=== PATIENT | female | born 1945 | race Two or more races ===

== ENCOUNTER 2018-02-28 14:20 | Emergency (ER) | payer OTHER ==
[2018-02-28 14:26] VITALS: BP 143/76; PULSE 69; TEMP 98; BMI 30.9
--- NOTE | 2018-02-28 15:25 | PDOC ---
History of Present Illness - General Chief Complaint: Injury Stated Complaint: INJURY - History of Present Illness Initial Comments: The patient is a 72 year old female, with a significant past medical history of HTN, diverticulitis, DM2, and chronic sinus infections, who presents to the emergency department s/p fall while attempting to get out of bed this AM. Per sister (serving as vice president business & corporate development), pt was attempting to exit bed this AM, when she slipped off of bed and fell on her coccyx, striking her head and L wrist during the fall. Per sister, pt was instructed by PMD to come to hospital due to headstrike while on ASA. Pt denies any HERNANDEZ, vision changes, peripheral numbness or weakness, gait abnormalities. Pt lives with daughter and ambulates without assistance at baseline The patient denies chest pain, shortness of breath, headache or dizziness. Denies fever, chills, nausea, vomiting, diarrhea and constipation. Denies dysuria, frequency, urgency and hematuria. Allergies: None Past surgical history: Hysterectomy and BL oophorectomy, 4X abdominal hernia repair Social History: Lives with daughter; Denies any hx of smoking, alcohol or drug abuse PMD: Dr. Heather Carrillo 02/28/18 15:26 Past History - Past Medical History Allergies/Adverse Reactions: Allergies Allergy/AdvReac Type Severity Reaction Status Date / Time No Known Allergies Allergy Verified 02/28/18 14:22 Home Medications: Ambulatory Orders Acetaminophen [Tylenol .Regular Strength -] 650 mg PO Q8H PRN #0 tablet Amlodipine Besylate [Norvasc -] 5 mg PO DAILY #0 tablet 09/30/12 Glipizide [Glipizide Xl] 5 mg PO DAILY #0 tab.er.24 09/30/12 Omeprazole [Prilosec (RX)] 40 mg PO DAILY #0 capsule. 09/30/12 Acetaminophen 650 mg PO QID PRN #30 tablet 02/28/18 Anemia: Yes COPD: No Diabetes: Yes GI Disorders: Yes (GERD, DIVERTICULITIS) HTN: Yes - Surgical History Abdominal Surgery: Yes (HERNIA REPAIR, DIVERTICULITIS) Appendectomy: Yes - Suicide/Smoking/Psychosocial Hx Smoking Status: No Smoking History: Never smoked Have you smoked in the past 12 months: No Number of Cigarettes Smoked Daily: 0 Information on smoking cessation initiated: No Hx Alcohol Use: No Drug/Substance Use Hx: No Substance Use Type: None Review of Systems - Review of Systems Comments:: GENERAL/CONSTITUTIONAL: No fever or chills. No weakness. HEAD, EYES, EARS, NOSE AND THROAT: No change in vision. No ear pain or discharge. No sore throat. CARDIOVASCULAR: No chest pain or shortness of breath RESPIRATORY: No cough, wheezing, or hemoptysis. GASTROINTESTINAL: No nausea, vomiting, diarrhea or constipation. GENITOURINARY: No dysuria, frequency, or change in urination. MUSCULOSKELETAL: Midline pain in lower back. Pain, swelling in L wrist and thumb. No joint or muscle swelling or pain. SKIN: No rash NEUROLOGIC: No headache, vertigo, loss of consciousness, or change in strength/ sensation. ENDOCRINE: No increased thirst. No abnormal weight change HEMATOLOGIC/LYMPHATIC: Bruising in L thumb. No anemia, easy bleeding, or history of blood clots. ALLERGIC/IMMUNOLOGIC: No hives or skin allergy. 02/28/18 15:25 02/28/18 15:55 *Physical Exam - Vital Signs Last Vital Signs Temp Pulse Resp BP Pulse Ox 98.0 F 69 18 143/76 100 02/28/18 14:23 02/28/18 14:23 02/28/18 14:23 02/28/18 14:23 02/28/18 14:23 - Physical Exam Comments: GENERAL: Elderly woman, Awake, alert, and fully oriented, NAD HEAD: No signs of trauma, normocephalic, atraumatic. No bony step off, bruises or ecchymoses noted. EYES: PERRLA, EOMI, sclera anicteric, conjunctiva clear ENT: Auricles normal inspection, hearing grossly normal, nares patent, oropharynx clear withoutexudates. Moist mucosa NECK: Normal ROM, supple, no lymphadenopathy, JVD, or masses LUNGS: No distress, speaks full sentences, clear to auscultation bilaterally HEART: Regular rate and rhythm, normal S1 and S2, no murmurs, rubs or gallops, peripheral pulses normal and equal bilaterally. ABDOMEN: Soft, nontender, normoactive bowel sounds. No guarding, no rebound. No masses EXTREMITIES : Focal edema, bruising in L lateral aspect of thumb and wrist, TTP. Chronic pain in knees BL. All other extremities normal inspection, Normal range of motion, no edema. No clubbing or cyanosis. NEUROLOGICAL: Cranial nerves II through XII grossly intact. Normal speech, gait not evaluated, no focal sensorimotor deficits 02/28/18 15:56 ED Treatment Course - LABORATORY CBC & Chemistry Diagram: 02/28/18 16:57 02/28/18 18:06 Medical Decision Making - Medical Decision Making 72 yo woman with HTN, DM2 and chronic sinusitis presenting s/p mechanical fall with headstrike and L wrist pain/swelling. Plan for CT head to r/o bleed as pt on ASA, L wrist XR to evaluate for fx. Likely discharge if imaging negative. 02/28/18 16:35 *DC/Admit/Observation/Transfer Diagnosis at time of Disposition: Fall - Discharge Dispostion Disposition: HOME Condition at time of disposition: Stable - Prescriptions Prescriptions: Acetaminophen 650 mg PO QID PRN #30 tablet PRN Reason: Pain Level 4 - 6 - Referrals - Patient Instructions Printed Discharge Instructions: How to Prevent Falls Additional Instructions: Please return to the ER if you have any signs or symptoms of chest pain, shortness of breath, uncontrollable fever, chills, nausea, vomiting, numbness, tingling, or weakness in any part of your body, changes in vision, or slurred speech. Please follow up with your primary care physician in 2-3 days. Please return to the ER if symptoms persist, worsen, or new symptoms arise. Print Language: MONTENEGRIN - Post Discharge Activity
--- NOTE | 2018-02-28 15:27 | PDOC ---
Attending Attestation - Resident Resident Name: Robina Lewisshua - HPI HPI: 03/17/18 00:47 Pt presents to the ED after mechanical fall complaining of L wrist pain. DEnies LOC. Ambulatory in the ED. Patient is on ASA and hit her head during the fall, so she was sent in by her PMD to get a head CT. - Physicial Exam PE: 03/17/18 00:48 Agree with resident exam. Patient is alert and is in no acute distress. L wrist has mild tenderness and swelling without deformity. - Medical Decision Making 03/17/18 00:49 Pt presents to the ED after mechanical fall. Since she is elderly and on ASA, will check CT head to rule out intracranial bleed. Will lcheck xray of the left wrist to rule out fx. Will likely discharge home if negative.
[2018-02-28] MEDS ORDERED: ACETAMINOPHEN 325 MG TABLET (FP) PO ONE (16:20)
[2018-02-28] MEDS ORDERED: ACETAMINOPHEN 325 MG TABLET (FP) ONE (16:25)
--- NOTE | 2018-02-28 18:02 | PDOC ---
Attending Attestation - Resident Resident Name: Michael Lewisua - ED Attending Attestation I have performed the following: I have examined & evaluated the patient, The case was reviewed & discussed with the resident, I agree w/resident's findings & plan, Exceptions are as noted - HPI HPI: 02/28/18 18:02 72 YO FEMALE BIBA AFTER A MECHANICAL FALL - Physicial Exam PE: 02/28/18 18:02 WNWD 72 yo female p/w left hand and wrist bruising and tenderness head no scalp lac neck supple lungs cta b/l cvs [id number] abd soft,nontender ext no edema,there is ecchymosis to left thumb,wrist neuro axox3,ambulatory - Medical Decision Making 02/28/18 18:05 ct head no acute intracranial pathology 03/01/18 01:21 wrist xray negative
[2018-02-28 18:14] LABS: BASO % 0.4 % (0-2.0); EOS % 4.7 % (0-4.5); HEMATOCRIT 30.3 % (32.4-45.2); HEMOGLOBIN 10.3 GM/dL (10.7-15.3); LYMPH % 36.7 % (8-40); MCH 30.9 pg (25.7-33.7); MEAN CELL VOLUME 90.7 fl (80-96); MEAN PLT VOLUME 8.1 fl (7.5-11.1); MONO % 7.9 % (3.8-10.2); NEUT % 50.3 % (42.8-82.8); PLATELET COUNT 257 K/MM3 (134-434); RBC 3.34 M/mm3 (3.60-5.2); RDW 13.5 % (11.6-15.6); WHITE BLOOD COUNT 6.7 K/mm3 (4.0-10.0)
[2018-02-28 18:19] LABS: INR 1.09 (0.82-1.09); PROTHROMBIN TIME (PATIENT) 12.3 SEC (9.7-13.0)
[2018-02-28 18:31] LABS: ALBUMIN 3.7 g/dl (3.4-5.0); ALK PHOS 43 U/L (45-117); ANION GAP 5 (8-16); BILIRUBIN,TOTAL 0.2 mg/dL (0.2-1.0); BLOOD UREA NITROGEN 20 mg/dL (7-18); CALCIUM 9.6 mg/dL (8.5-10.1); CHLORIDE 114 mmol/L (98-107); CO2 23 mmol/L (21-32); CREATININE 1.1 mg/dL (0.55-1.02); GLUCOSE,RANDOM 143 mg/dL (74-106); POTASSIUM 5.3 mmol/L (3.5-5.1); SGOT/AST 9 U/L (15-37); SGPT/ALT 15 U/L (12-78); SODIUM 142 mmol/L (136-145); TOT PROT 7.1 g/dl (6.4-8.2)
--- NOTE | 2018-02-28 19:24 | PDOC ---
*Physical Exam - Vital Signs Last Vital Signs Temp Pulse Resp BP Pulse Ox 98.0 F 69 18 143/76 100 02/28/18 14:23 02/28/18 14:23 02/28/18 14:23 02/28/18 14:23 02/28/18 14:23 ED Treatment Course - LABORATORY CBC & Chemistry Diagram: 02/28/18 16:57 02/28/18 18:06 - ADDITIONAL ORDERS Additional order review: Laboratory Results 02/28/18 02/28/18 18:06 18:06 PT with INR 12.30 INR 1.09 Sodium 142 Potassium 5.3 H Chloride 114 H Carbon Dioxide 23 Anion Gap 5 L BUN 20 H Creatinine 1.1 H Creat Clearance w eGFR 48.55 Random Glucose 143 H Calcium 9.6 Total Bilirubin 0.2 D AST 9 L ALT 15 Alkaline Phosphatase 43 L Total Protein 7.1 Albumin 3.7 02/28/18 16:57 RBC 3.34 L MCV 90.7 MCHC 34.0 RDW 13.5 MPV 8.1 Neutrophils % 50.3 D Lymphocytes % 36.7 D Monocytes % 7.9 Eosinophils % 4.7 H Basophils % 0.4 - Medications Given in the ED: ED Medications Discontinued Medications Generic Name Dose Route Start Last Admin Trade Name Freq PRN Reason Stop Dose Admin Acetaminophen 650 mg 02/28/18 16:20 02/28/18 16:27 Tylenol - PO 02/28/18 16:21 650 mg ONCE ONE Administration Medical Decision Making - Medical Decision Making 02/28/18 19:19 The patient was signed out to me by Dr. Lewis, day team. The patient is a 72F who had a mechanical fall on an outstretched hand. Pending L wrist XR and disposition. Head CT negative. Likely disposition: home. 02/28/18 20:25 XR negative. Will d/c home with PCP f/u. *DC/Admit/Observation/Transfer Diagnosis at time of Disposition: Fall Qualifiers: Encounter type: initial encounter Qualified Code(s): W19.XXXA - Unspecified fall, initial encounter - Discharge Dispostion Disposition: HOME Condition at time of disposition: Stable Decision to Admit order: No - Referrals - Patient Instructions Printed Discharge Instructions: How to Prevent Falls Additional Instructions: Please return to the ER if you have any signs or symptoms of chest pain, shortness of breath, uncontrollable fever, chills, nausea, vomiting, numbness, tingling, or weakness in any part of your body, changes in vision, or slurred speech. Please follow up with your primary care physician in 2-3 days. Please return to the ER if symptoms persist, worsen, or new symptoms arise. - Post Discharge Activity
== END 2018-02-28 20:43 | disposition home or self-care (01) ==
LOC: JER 14:20
DX: S09.8XXA Other specified injuries of head, initial encounter (principal); S69.82XA Other specified injuries of left wrist, hand and finger(s), initial encounter; W06.XXXA Fall from bed, initial encounter; Y93.89 Activity, other specified; Y92.013 Bedroom of single-family (private) house as the place of occurrence of the external cause; Y99.8 Other external cause status; Z79.82 Long term (current) use of aspirin; Z87.19 Personal history of other diseases of the digestive system
CPT/HCPCS: 36415; 70450-TC; 73110-TC-LR-FY; 73130-TC-LR-FY; 80053; 85025; 85610; 99283-25

== ENCOUNTER 2018-11-08 21:43 | Emergency (ER) | payer OTHER ==
[2018-11-08 22:04] VITALS: BP 174/84; PULSE 115; TEMP 98.1; BMI 27.4
--- NOTE | 2018-11-08 22:12 | PDOC ---
Attending Attestation - HPI HPI: 11/08/18 22:59 The patient is a 73 year old female, with a significant past medical history of HTN, diverticulitis, DM2, who presents to the emergency department s/p mechanical fall with, a headache. As per patient, she was walking on tiled floor with her socks when she slipped and fell hitting her head. She notes initial bleeding to the scalp and a dull, diffuse headache. She was able to ambulate s/p fall. She denies any LOC. She denies recent fevers or chills. She denies recent nausea , vomit, diarrhea or constipation. She denies recent dysuria, frequency, urgency or hematuria. She denies recent chest pain or shortness of breath. Allergies: NKDA Past surgical history: Hysterectomy and BL oophorectomy, 4X abdominal hernia repair Social history: Lives alone at home. Nonsmoker. Denies EtOH use and recreational drug use. - Medical Decision Making 11/09/18 00:26 EXAM: CERVICAL SPINE CT W/O CONTR HISTORY: Status post fall COMPARISON: None. FINDINGS: There is diffuse moderate to severe degenerative changes with a mild degenerative anterolisthesis of C2 on C3 and C7 on T1 There is no fracture or prevertebral soft tissue swelling . The lung apices are clear. IMPRESSION: No fracture EXAM: HEAD CT WITHOUT CONTRAST HISTORY: Status post fall COMPARISON: None FINDINGS: The ventricular system is midline and nondilated. The sulcal pattern is normal for the patient's age. There is no bleed, mass, extra-axial fluid collection or mass effect. Posterior right parietal scalp hematoma is noted. No skull fracture or skull lesion is identified. The visualized paranasal sinuses and mastoid air cells are clear. IMPRESSION: Scalp hematoma without skull fracture or intracranial hemorrhage. Read by: Hunter Longoria MD <Balaji Sierra - Last Filed: 11/09/18 00:26> - Resident Resident Name: Hair Manuel - ED Attending Attestation I have performed the following: I have examined & evaluated the patient, The case was reviewed & discussed with the resident, I agree w/resident's findings & plan - Physicial Exam PE: 11/09/18 00:31 Agree with resident exam - Medical Decision Making 73-year-old status post mechanical fall with injury to the right scalp CT scans of the head and cervical spine show no acute traumatic injury She will be discharged home, her daughter who is at the bedside states she will be staying with her this evening 11/09/18 00:32 <Margaret Torre - Last Filed: 11/09/18 00:33> Attestations - Attestations 11/08/18 22:59 Documentation prepared by Balaji Sierra, acting as medical technologist clinical for Margaret Torre DO. <Balaji Sierra - Last Filed: 11/09/18 00:26>
[2018-11-08] MEDS ORDERED: ACETAMINOPHEN 325 MG TABLET (FP) PO ONE (22:34)
[2018-11-08] MEDS ORDERED: DIPHTH,PERTUSS(ACELL),TET 0.5 ML DISP.SYRIN IM ONE ×2 (22:41→23:20)
--- NOTE | 2018-11-08 22:41 | PDOC ---
History of Present Illness - General Chief Complaint: Injury Stated Complaint: INJURY,LACERATION Time Seen by Provider: 11/08/18 22:07 - History of Present Illness Initial Comments: 11/08/18 22:34 73 yo F with h/o HTN who p/w closed head injury s/p mechanical fall. Patient states that she was ambulating in kitchen and slipped and fell and hit the back of her head on the tile 45 minutes [employer]. Denies LOC, neck/back trauma. States that she was unable to phonate for 30 seconds following event. On ground for one minute. Now with diffuse, dull, headache, and posterior right sided neck pain. Was able to ambulate following event. Typically ambulates without assistive device. Denies AC. Does not recall last tetanus. Patient denies palpitations, vision change, neck stiffness, N/V, F/C, CP, SOB, urinary complaints, abdominal pain, diarrhea, constipation, hematuria, BPR, lightheadedness, weakness, sensory changes. PMHx: as noted above ROS: as noted SHx:Denies Etoh, IVDA, tobacco use. Allergies: NKDA Past History - Past Medical History Allergies/Adverse Reactions: Allergies Allergy/AdvReac Type Severity Reaction Status Date / Time No Known Allergies Allergy Verified 11/08/18 22:04 Home Medications: Ambulatory Orders Acetaminophen [Tylenol .Regular Strength -] 650 mg PO Q8H PRN #0 tablet Amlodipine Besylate [Norvasc -] 5 mg PO DAILY #0 tablet 09/30/12 Glipizide [Glipizide Xl] 5 mg PO DAILY #0 tab.er.24 09/30/12 Omeprazole [Prilosec (RX)] 40 mg PO DAILY #0 capsule. 09/30/12 Acetaminophen 650 mg PO QID PRN #30 tablet 02/28/18 Anemia: Yes COPD: No Diabetes: Yes GI Disorders: Yes (GERD, DIVERTICULITIS) HTN: Yes - Surgical History Abdominal Surgery: Yes (HERNIA REPAIR, DIVERTICULITIS) Appendectomy: Yes - Suicide/Smoking/Psychosocial Hx Smoking Status: No Smoking History: Never smoked Have you smoked in the past 12 months: No Number of Cigarettes Smoked Daily: 0 Information on smoking cessation initiated: No Hx Alcohol Use: No Drug/Substance Use Hx: No Substance Use Type: None Review of Systems - Review of Systems Comments:: 11/08/18 22:47 GENERAL/CONSTITUTIONAL: No fever or chills. No weakness. HEAD, EYES, EARS, NOSE AND THROAT: No change in vision. No ear pain or discharge. No sore throat. CARDIOVASCULAR: No chest pain or shortness of breath RESPIRATORY: No cough, wheezing, or hemoptysis. GASTROINTESTINAL: No nausea, vomiting, diarrhea or constipation. GENITOURINARY: No dysuria, frequency, or change in urination. MUSCULOSKELETAL: No joint or muscle swelling or pain. No neck or back pain. SKIN: No rash NEUROLOGIC: +headache. No vertigo, loss of consciousness, or change in strength/ sensation. ENDOCRINE: No increased thirst. No abnormal weight change HEMATOLOGIC/LYMPHATIC: No anemia, easy bleeding, or history of blood clots. ALLERGIC/IMMUNOLOGIC: No hives or skin allergy. *Physical Exam - Vital Signs Last Vital Signs Temp Pulse Resp BP Pulse Ox 98.1 F 115 H 19 174/84 H 97 11/08/18 21:43 11/08/18 21:43 11/08/18 21:43 11/08/18 21:43 11/08/18 21:43 - Physical Exam Comments: 11/08/18 22:47 GENERAL: Awake, alert, and fully oriented, in no acute distress HEAD: + Right sided superior occipital scalp hemaotma/ttp measuring 6 x 4 cm, with 2 cm laceration, no subcutaneous involvement. No signs of trauma, normocephalic, atraumatic EYES: PERRLA, EOMI, sclera anicteric, conjunctiva clear ENT: Auricles normal inspection, hearing grossly normal, nares patent, oropharynx clear without exudates. Moist mucosa NECK: Normal ROM, supple, no lymphadenopathy, JVD, or masses LUNGS: No distress, speaks full sentences, clear to auscultation bilaterally HEART: Regular rate and rhythm, normal S1 and S2, no murmurs, rubs or gallops, peripheral pulses normal and equal bilaterally. ABDOMEN: Soft, nontender, normoactive bowel sounds. No guarding, no rebound. No masses EXTREMITIES : Normal inspection, Normal range of motion, no edema. No clubbing or cyanosis. BACK: Neg stepoff, bony deformity, skin change, fluctuance, ttp. NEUROLOGICAL: Cranial nerves II through XII grossly intact. Normal speech, neg dysmetria on FTN, nml HTS, ALLA, no focal sensorimotor deficits SKIN: Warm, Dry, normal turgor, no rashes or lesions noted Moderate Sedation - Procedure Monitoring Vital Signs: Procedure Monitoring Vital Signs Temperature 98.1 F 11/08/18 21:43 Pulse Rate 115 H 11/08/18 21:43 Respiratory Rate 11/08/18 21:43 Blood Pressure 174/84 H 11/08/18 21:43 O2 Sat by Pulse Oximetry (%) 97 11/08/18 21:43 Procedures - Laceration/Wound Repair Right Posterior Head Wound Length: to 2.5 cm Wound Explored: clean Wound's Depth, Shape: superficial Irrigated w/ Saline: Yes Betadine Prep: No Anesthesia: 1% Lidocaine Wound Debrided: minimal Wound Repaired With: Sutures Suture Size/Type: 5:0 Layer Closure: No Sterile Dressing Applied: No ED Treatment Course - RADIOLOGY Radiology Studies Ordered: Category Date Time Status CERVICAL SPINE CT W/O CONTR [CT] Stat CT Scan 11/08/18 22:[address] WITHOUT CONTRAST [CT] Stat CT Scan 11/08/18 22:34 Ordered Medical Decision Making - Medical Decision Making 11/08/18 22:44 73 yo F with h/o HTN who p/w closed head injury s/p mechanical fall. BP 174/84, HR 115, vitals otherwise wnl, AF, A&Ox3, GCS 15. + right sided occipital scalp hematoma 6 x 4 cm, with 2 cm laceration, no subcutaneous involvement. Absent neuro deficits. CTH r/o skull fracture, hematoma, hemorrhage. No evidence of basilar skull fracture. No obvious bony abnml, strength 5/5 intact throughout. Provide analgesia, CT, reassess. ED Course: CTH, CT C-SPINE, Tylenol 11/08/18 22:49 11/09/18 00:38 CTH, C-SPINE: Neg Pain improved Wound irrigated with NS, lidocaine 3 cc, Suture repair with 2 x 5-0 non absorbable sutures. Stable for d/c with return and fall precautions. Advised to return for wound check and suture removal. *DC/Admit/Observation/Transfer Diagnosis at time of Disposition: Closed head injury Qualifiers: Encounter type: initial encounter Qualified Code(s): S09.90XA - Unspecified injury of head, initial encounter Fall Qualifiers: Encounter type: initial encounter Qualified Code(s): W19.XXXA - Unspecified fall, initial encounter - Discharge Dispostion Condition at time of disposition: Stable - Referrals Referrals: ON STAFF,NOT [Primary Care Provider] - - Patient Instructions Printed Discharge Instructions: How to Prevent Falls, DI for Closed Head Injury Additional Instructions: Please return to the emergency department with any new or worsening symptoms or concerns. Please follow up with your primary care physician within 72 hours. Please return emergency department in 7 days, for suture removal and wound check. Can take Tylenol as needed for pain 650 mg every 8 hours. - Post Discharge Activity - Attestations Physician Attestion: 11/08/18 22:50 I attest to the information provided in this note.
[2018-11-08] MEDS ORDERED: ACETAMINOPHEN 325 MG TABLET (FP) ONE (23:20)
== END 2018-11-09 01:59 | disposition home or self-care (01) ==
LOC: JER 21:43
PROC: 0HQ0XZZ Repair Scalp Skin, External Approach (ICD-10-PCS; principal; 2018-11-08)
PROC: 3E0234Z Introduction of Serum, Toxoid and Vaccine into Muscle, Percutaneous Approach (ICD-10-PCS; 2018-11-08)
DX: S01.01XA Laceration without foreign body of scalp, initial encounter (principal); S09.90XA Unspecified injury of head, initial encounter; W18.39XA Other fall on same level, initial encounter; Y93.89 Activity, other specified; Y92.009 Unspecified place in unspecified non-institutional (private) residence as the place of occurrence of the external cause; I10 Essential (primary) hypertension
CPT/HCPCS: 12001-25; 70450-TC; 72125-TC; 90471; 90715; 99282-25

== ENCOUNTER 2018-11-15 18:17 | Emergency (ER) | payer OTHER ==
--- NOTE | 2018-11-15 18:32 | PDOC ---
Suture Removal/Wound Check HPI - History of Present Illness Chief Complaint: Suture/Staple Removal(Here) Stated Complaint: STITCHES REMOVAL Time Seen by Provider: 11/15/18 18:32 History Source: Yes: Patient, Family, Old Records Exam Limitations: Yes: No Limitations Past History - Past Medical History Allergies/Adverse Reactions: Allergies Allergy/AdvReac Type Severity Reaction Status Date / Time No Known Allergies Allergy Verified 11/08/18 22:04 Home Medications: Ambulatory Orders Acetaminophen [Tylenol .Regular Strength -] 650 mg PO Q8H PRN #0 tablet Amlodipine Besylate [Norvasc -] 5 mg PO DAILY #0 tablet 09/30/12 Glipizide [Glipizide Xl] 5 mg PO DAILY #0 tab.er.24 09/30/12 Omeprazole [Prilosec (RX)] 40 mg PO DAILY #0 capsule.dr 09/30/12 Acetaminophen 650 mg PO QID PRN #30 tablet 02/28/18 Anemia: Yes COPD: No Diabetes: Yes GI Disorders: Yes (GERD, DIVERTICULITIS) HTN: Yes - Surgical History Abdominal Surgery: Yes (HERNIA REPAIR, DIVERTICULITIS) Appendectomy: Yes - Suicide/Smoking/Psychosocial Hx Smoking Status: No Smoking History: Never smoked Have you smoked in the past 12 months: No Number of Cigarettes Smoked Daily: 0 Hx Alcohol Use: No Drug/Substance Use Hx: No Substance Use Type: None
[2018-11-15 18:34] VITALS: BP 138/57; PULSE 84; TEMP 98.4; BMI 25.7
--- NOTE | 2018-11-15 18:35 | PDOC ---
Rapid Medical Evaluation Chief Complaint: Suture/Staple Removal(Here) Time Seen by Provider: 11/15/18 18:32 Medical Evaluation: Allergies Allergy/AdvReac Type Severity Reaction Status Date / Time No Known Allergies Allergy Verified 11/08/18 22:04 Vital Signs Temp Pulse Resp BP Pulse Ox 98.4 F 84 16 138/57 L 98 11/15/18 18:32 11/15/18 18:32 11/15/18 18:32 11/15/18 18:32 11/15/18 18:32 11/15/18 18:34 I performed a brief in-person evaluation of this patient. Chief complaint is: Scalp suture removal, migraine, sensation of wound fullness/ pulsation. "I think there's something in there." Pertinent physical exam findings include: Hematoma and tenderness at wound site , no erythema or discharge. I have ordered the following: None Patient will proceed to the ED for further evaluation. Discharge Disposition - Diagnosis Laceration of scalp Qualifiers: Encounter type: initial encounter Qualified Code(s): S01.01XA - Laceration without foreign body of scalp, initial encounter - Discharge Dispostion Condition at time of disposition: Stable - Referrals - Patient Instructions - Post Discharge Activity
--- NOTE | 2018-11-15 19:41 | PDOC ---
History of Present Illness - General Chief Complaint: Suture/Staple Removal(Here) Stated Complaint: STITCHES REMOVAL Time Seen by Provider: 11/15/18 18:32 - History of Present Illness Initial Comments: 11/15/18 19:39 73-year-old female presents for suture removal from her scalp Past History - Past Medical History Allergies/Adverse Reactions: Allergies Allergy/AdvReac Type Severity Reaction Status Date / Time No Known Allergies Allergy Verified 11/08/18 22:04 Home Medications: Ambulatory Orders Amlodipine Besylate [Norvasc -] 5 mg PO DAILY #0 tablet 09/30/12 Glipizide [Glipizide Xl] 5 mg PO DAILY #0 tab.er.24 09/30/12 Omeprazole [Prilosec (RX)] 40 mg PO DAILY #0 capsule.dr 09/30/12 Acetaminophen 650 mg PO QID PRN #30 tablet 02/28/18 Anemia: Yes COPD: No Diabetes: Yes GI Disorders: Yes (GERD, DIVERTICULITIS) HTN: Yes - Surgical History Abdominal Surgery: Yes (HERNIA REPAIR, DIVERTICULITIS) Appendectomy: Yes - Immunization History Immunization Up to Date: No - Suicide/Smoking/Psychosocial Hx Smoking Status: No Smoking History: Never smoked Have you smoked in the past 12 months: No Number of Cigarettes Smoked Daily: 0 Information on smoking cessation initiated: No Hx Alcohol Use: No Drug/Substance Use Hx: No Substance Use Type: None Review of Systems - Review of Systems Is the patient limited Serbian proficient: No *Physical Exam - Vital Signs Last Vital Signs Temp Pulse Resp BP Pulse Ox 98.4 F 84 16 138/57 L 98 11/15/18 18:32 11/15/18 18:32 11/15/18 18:32 11/15/18 18:32 11/15/18 18:32 - Physical Exam Comments: 11/15/18 19:40 2 sutures were removed without complication from the right parietal scalp wound was well-healed and edges were well approximated normal surrounding skin color and temperature there was mild swelling about the area of the wound. 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 - Procedure Monitoring Vital Signs: Procedure Monitoring Vital Signs Temperature 98.4 F 11/15/18 18:32 Pulse Rate 84 11/15/18 18:32 Respiratory Rate 16 11/15/18 18:32 Blood Pressure 138/57 L 11/15/18 18:32 O2 Sat by Pulse Oximetry (%) 98 11/15/18 18:32 *DC/Admit/Observation/Transfer Diagnosis at time of Disposition: Visit for suture removal Diagnosis at time of Disposition: (Ruled Out): Laceration of scalp - Discharge Dispostion Disposition: HOME Condition at time of disposition: Stable Decision to Admit order: No - Referrals - Patient Instructions Printed Discharge Instructions: DI for Suture Removal Additional Instructions: Keep the area clean and dry for the next 48 hours. After 48 hours and may remove wash the area with soap and water and leave it open to air return to the emergency room should there be any drainage redness swelling or pain in the area - Post Discharge Activity
== END 2018-11-15 19:43 | disposition home or self-care (01) ==
LOC: JERFT 18:17
DX: Z48.02 Encounter for removal of sutures (principal)
CPT/HCPCS: 99281-25